=== PATIENT | female | born 1995 | race Caucasian/White ===

== ENCOUNTER 2016-08-26 01:11 | Emergency (ER) | payer OTHER ==
[2016-08-26] MEDS ORDERED: Ondansetron ODT TAB* 4 MG PO ONE (01:21)
[2016-08-26 02:00] LABS: Hematocrit 40 % (35-47); Hemoglobin 13.6 g/dl (12.0-16.0); Mean Corpuscular HGB Conc 35 g/dl (31-36); Mean Corpuscular Hemoglobin 30 pg (27-31); Mean Corpuscular Volume 86 fL (80-97); Mean Platelet Volume 10 um3 (7.4-10.4); Red Blood Count 4.58 10^6/ul (4.0-5.4); Red Cell Distribution Width 13 % (10.5-15); White Blood Count 5.6 10^3/ul (3.5-10.8)
[2016-08-26 02:10] LABS: Albumin 4.8 g/dL (3.2-5.2); Anion Gap 9 mmol/L (2-11); BUN/Creatinine Ratio 8.2 (8-20); Blood Urea Nitrogen 7 mg/dL (6-24); CO2 Carbon Dioxide 24 mmol/L (22-32); Calcium 9.2 mg/dL (8.6-10.3); Chloride 102 mmol/L (101-111); EGFR African American 108.6 (>60); EGFR Non-African American 84.4 (>60); Glucose 111 mg/dL (70-100); Potassium 3.7 mmol/L (3.5-5.0); Sodium 135 mmol/L (133-145); Total Protein 7.7 g/dL (6.4-8.9)
[2016-08-26 02:11] LABS: ALT 15 U/L (7-52); AST 16 U/L (13-39); Alkaline Phosphatase 44 U/L (34-104); Globulin 2.9 g/dL (2-4)
[2016-08-26 02:14] LABS: Alcohol 285 mg/dL (<10)
[2016-08-26 04:08] LABS: Benzodiazepine Urine Screen None Detected (None Detect)
--- NOTE | 2016-08-26 05:34 | ED ---
Anthony Major Adam, scribed for Dann Resendez on 08/26/16 at 0143 . Substance Abuse/Use - HPI Summary HPI Summary: Pt is a 21 year old female presenting with EtOH intoxication. Hx incomplete due to pt being incoherent. She has been vomiting. Her friends state that she has been in this state for approximately 2 hours. They deny any PMHx. - History Of Current Complaint Chief Complaint: EDSubstanceAbuse Stated Complaint: ALCOHOL CONSUMPTION Time Seen by Provider: 08/26/16 01:17 Hx Obtained From: Family/Chiropractor Sole Practitioner - Friends Hx From Patient Unobtainable Due To: Other - Incoherent due to EtoH intoxication Onset/Duration of Drug/ETOH Abuse: Hours Ingestion History: Type/Name Of Drug - EtOH Overdose Characteristics: Oral Severity Initially: Moderate Severity Currently: Moderate Character: Stuporous Aggravating Factor(s): Nothing Alleviating Factor(s): Nothing Associated Signs And Symptoms: Vomiting - Allergies/Home Medications Allergies/Adverse Reactions: Allergies Allergy/AdvReac Type Severity Reaction Status Date / Time Penicillins Allergy Unknown Verified 08/26/16 01:15 Reaction Details PMH/Surg Hx/FS Hx/Imm Hx Infectious Disease History: No Infectious Disease History: Denies: Traveled Outside the [place] in Last 30 Days - Family History Known Family History: Positive: Unknown - Level 5 Caveat - pt is incoherent due to EtOH intoxication - Social History Occupation: Student Lives: Alone Alcohol Use: Occasionally Hx Substance Use: No Substance Use Type: Reports: None Hx Tobacco Use: No Smoking Status (MU): Never Smoked Tobacco Review of Systems Negative: Fever Positive: Vomiting All Other Systems Reviewed And Are Negative: No - Comments Additional Review of Systems Comments: Level 5 Caveat - pt is incoherent due to EtOH intoxication. Physical Exam - Summary Physical Exam Summary: Evidence of vomiting Triage Information Reviewed: Yes Vital Signs On Initial Exam: Initial Vitals Temp Pulse Resp BP Pulse Ox 97.6 F 84 16 141/78 100 08/26/16 01:12 08/26/16 01:12 08/26/16 01:12 08/26/16 01:12 08/26/16 01:12 Vital Signs Reviewed: Yes Completion Of Physical Exam Limited Due To: Level 5 - Pt is incoherent due to EtOH intoxication Appearance: Positive: Well-Appearing, No Pain Distress Skin: Positive: Warm, Skin Color Reflects Adequate Perfusion, Dry Head/Face: Positive: Normal Head/Face Inspection Eyes: Positive: EOMI, NOLBERTO ENT: Positive: Normal ENT inspection Neck: Positive: Supple, Nontender Respiratory/Lung Sounds: Positive: Clear to Auscultation, Breath Sounds Present Cardiovascular: Positive: RRR, Pulses are Symmetrical in both Upper and Lower Extremities Abdomen Description: Positive: Nontender, Soft Bowel Sounds: Positive: Present Musculoskeletal: Positive: Normal, Strength/ROM Intact Neurological: Positive: Normal - [place] Coma Scale Coma Scale Total: 14 Diagnostics - Vital Signs Vital Signs Temp Pulse Resp BP Pulse Ox 08/26/16 01:17 75 92 08/26/16 01:12 97.6 F 84 16 141/78 100 - Laboratory Result Diagrams: 08/26/16 01:37 08/26/16 01:37 Lab Statement: Any lab studies that have been ordered have been reviewed, and results considered in the medical decision making process. - Additional Comments Diagnostic Additional Comments: Serum Alcohol - 285 Course/Dx - Diagnoses Provider Diagnoses: Alcohol intoxication Discharge - Discharge Plan Condition: Stable Disposition: HOME Patient Education Materials: Alcohol Intoxication (ED) Referrals: [facility] TAHMINA Noble [Primary Care Provider] - Additional Instructions: Follow up with [facility]. The documentation as recorded by the Anthony osei Adam accurately reflects the service I personally performed and the decisions made by Dipti hunt Emmanuel.
[2016-08-26 05:43] VITALS: BP 129/79
== END 2016-08-26 05:43 | disposition home or self-care (01) ==
LOC: ED 01:11
DX: F10.129 Alcohol abuse with intoxication, unspecified (principal); Y90.8 Blood alcohol level of 240 mg/100 ml or more; R11.10 Vomiting, unspecified
CPT/HCPCS: 36415; 80053; 80307; 80320; 84702; 85025; 99282; A9270-GY; G0480